=== PATIENT | male | born 1985 | race Caucasian/White ===

== ENCOUNTER 2021-08-26 03:57 | Emergency (ER) | payer BC, SELFPAY ==
--- NOTE | ~2021-08-26 | CT_ITS ---
EXAMINATION: CT abdomen pelvis wo con EXAM DATE: 08/26/2021 04:55 INDICATION: Lt flank and groin pain TECHNIQUE: Spiral CT of the abdomen and pelvis was performed without contrast. Axial, coronal and s agittal images of the abdomen and pelvis were reviewed. The dose-length product (DLP) for this exami nation was 1556.34 mGy-cm. The exposure was tailored according to patient size (auto mA exposure con trol), and iterative reconstruction (ASIR) was used as additional dose reduction technique. There is no prior study for comparison. FINDINGS: There is a punctate 2 mm calcification 1 mm from the left ureterovesicular junction which c ould be ureteral stone, mild left periureteral fat stranding. No caliectasis. No other genitourinary calcification suspected. The liver, spleen, adrenal glands and pancreas are unremarkable. Gallbladd er is unremarkable. No biliary obstruction. The prostate is unremarkable. The bladder is unremar kable. There is no retroperitoneal or pelvic lymphadenopathy. There are no findings to suggest appendicitis. The stomach and small bowel are unremarkable. There is expected amount of colonic stool. No free intraperitoneal gas. The heart is normal in size. T here are no pericardial or pleural effusions. The lung bases are unremarkable. The bones are unrema rkable. IMPRESSION: 1. Punctate, 2 mm left pelvic calcification probably 1 cm from the UVJ. Mild periureteral fat strand ing. Reviewed, dictated and finalized at location A. [employer] IMPRESSION: 1. Punctate, 2 mm left pelvic calcification probably 1 cm from the UVJ. Mild p eriureteral fat stranding.
[2021-08-26 04:04] VITALS: BP 145/88; PULSE 90; RESP 18; TEMP 36.7; O2SAT 99
[2021-08-26 04:12] VITALS: BP 149/89; PULSE 78; TEMP 37.1
[2021-08-26] MEDS: KETOROLAC 30 MG/ML VIAL (*BKC) IV PUSH (04:39)
[2021-08-26 05:00] LABS: Basophils Percent Auto 0.3 % (0.2-1.2); Eosinophils Absolute Auto 0.4 K/mm3 (0-0.3); Eosinophils Percent Auto 2.5 % (0-4.4); Hematocrit 44.7 % (42.0-52.0); Immature Granulocyte Absolute 0.06 K/mm3 (0.00-0.031); Immature Granulocyte Percent A 0.4 % (0-0.5); Lymphocytes Absolute Auto 1.68 K/mm3 (0.9-3.2); Lymphocytes Percent Auto 11.8 % (18.3-44.2); Mean Corpuscular HGB Conc 33.6 g/dl (32-36); Mean Corpuscular Hemoglobin 30.9 pg (26-34); Mean Corpuscular Volume 92.2 fl (80-100); Mean Platelet Volume 9.9 fl (7.4-10.4); Monocytes Absolute Auto 1.2 K/mm3 (0.1-0.6); Monocytes Percent Auto 8.4 % (2.6-8.5); Neutrophils Absolute Auto 10.9 K/mm3 (1.3-6.7); Neutrophils Percent Auto 76.6 % (45.5-73.1); Platelet Count Result 307 k/mm3 (150-375); Red Blood Count 4.85 M/mm3 (4.6-6.20); Red Cell Distribution Width 12.4 % (11.5-14.5); White Blood Count 14.2 K/mm3 (4.5-10.0)
[2021-08-26 05:26] LABS: Alanine Aminotransferase 25 U/L (4-50); Albumin Level 4.5 g/dL (3.5-5.1); Alkaline Phosphatase 114 U/L (38-126); Anion Gap 10 mmol/L (8-16); Aspartate Amino Transferase 25 U/L (17-59); Bilirubin,Total 0.7 mg/dL (0.2-1.3); Blood Urea Nitrogen 12 mg/dL (9-20); Calcium 9.2 mg/dL (8.4-10.2); Carbon Dioxide 26 mmol/L (22-30); Chloride 105 mmol/L (98-107); Estimated CRCL calculation 91 ml/min; Estimated Glomerular Filt Rate > 60; Glucose 111 mg/dL (65-110); Potassium 4.1 mmol/L (3.4-5.0); Sodium 141 mmol/L (137-145)
--- NOTE | 2021-08-26 05:37 | ED.ABDPAIN ---
HPI - Abdominal Pain General Chief Complaint: Abdominal Pain Stated Complaint: left flank pain Time Seen by Provider: 08/26/21 05:31 Source: patient Mode of arrival: ambulatory Limitations: no limitations History of Present Illness HPI narrative: Patient is a 36-year-old male complaining of left flank pain radiating to his left groin, 10 out of 10, sharp, started prior to arrival, woke me up from sleep . Patient denies any chest pain, shortness of breath, abdominal pain, nausea, vomiting, diarrhea, urinary symptoms, fever or chills. Patient denies any history of kidney stones. Related Data Allergies Allergy/AdvReac Type Severity Reaction Status Date / Time No Known Allergies Allergy Unverified 05/27/19 09:57 Review of Systems Review of Systems: All systems reviewed & are unremarkable except as noted in HPI and below Constitutional: Constitutional: Denies body ache(s), Denies chills, Denies excessive sweating, Denies fatigue, Denies fever(s), Denies headache(s), Denies lethargy, Denies malaise, Denies weakness and Denies weight loss Eyes: Eyes: Denies blurry vision, Denies change in vision and Denies loss of vision ENT: Denies dizziness, Denies ear discharge, Denies headache(s), Denies lip swelling, Denies epistaxis, Denies nasal congestion, Denies neck pain, Denies throat swelling and Denies tongue swelling Cardiovascular: Cardiovascular: Denies chest pain, Denies chest pain at rest, Denies chest pain with activity, Denies diaphoresis, Denies rapid heart rate, Denies edema, Denies irregular heart rhythm, Denies lightheadedness, Denies palpitations, Denies dyspnea and Denies dyspnea on exertion Respiratory: Respiratory: Denies chest congestion, Denies cough, Denies hemoptysis, Denies dyspnea and Denies dyspnea on exertion Gastrointestinal: Gastrointestinal: Denies abdominal pain, Denies melena, Denies hematochezia, Denies diarrhea, Denies nausea, Denies vomiting and Denies hematemesis Musculoskeletal: Musculoskeletal: Denies abnormal gait, Denies deformity, Denies joint swelling, Denies limited range of motion, Denies neck pain and Denies numbness Neurologic: Denies Abnormal speech present, Denies abnormal gait, Denies confusion, Denies dizziness, Denies headache(s), Denies focal weakness, Denies loss of vision, Denies numbness, Denies Other visual disturbances, Denies Sensory deficit (Neuro) and Denies weakness Psychiatric: Psychiatric: Denies confusion, Denies depression, Denies auditory hallucinations, Denies homicidal ideation and Denies suicidal ideation Endocrine: Endocrine: Denies cold intolerance, Denies excessive sweating, Denies fatigue, Denies heat intolerance and Denies palpitations Hematologic/Lymphatic: Hematologic/Lymphatic: Denies easy bleeding and Denies easy bruising Allergic/Immunologic: Allergic/Immunologic: Denies lip swelling, Denies throat swelling and Denies tongue swelling PMFSH Past Medical History Medical History ADHD, predominantly inattentive type Chronic nonallergic rhinitis COVID-19 Pharyngitis Family History Family History Grandparent Cerebrovascular accident Family history of cardiac disorder Family history of chronic obstructive pulmonary disease Family history of lung cancer Family history of primary malignant neoplasm of liver Family history of malignant neoplasm of brain Family history of emphysema Social History Social History Smoking status: Smoker, status unknown Alcohol intake: current Exam Const: General: cooperative, healthy appearing, comfortable, no acute distress, well developed, alert and awake; No confusion Orientation/consciousness: oriented to person, oriented to place, oriented to time, patient oriented x3 and No confusion Limitations: no limitations HENMT: Head: normal to inspection, norm
[2021-08-26] MEDS: SODIUM CHLORIDE 0.9% IV 1,000 ML 999 ML IV CONT (05:51)
[2021-08-26] MEDS: HYDROcodone/acetaminophen (*CRX) 7.5-325 MG TABLET 1 TAB PO (06:02)
[2021-08-26] MEDS: TAMSULOSIN HCL 0.4 MG CAPSULE PO (06:05)
[2021-08-26 07:29] LABS: Add Urine Microscopic? YES; Appearance Urine Clear (Clear); Bilirubin Urine Negative (Negative); Blood Urine 1+ (Negative); Color Urine Yellow (Yellow); Glucose Urine UA Negative (Negative); Ketones Urine Negative (Negative); Leukocyte Esterase Ur Negative LEU/UL (Negative); Mucus Urine Rare /lpf; Nitrate Urine Negative (Negative); Protein Urine Negative (Negative); RBC Urine 0-2 /hpf (0-2); Specific Grav Ur 1.014 (1.001-1.035); Urobilinogen Urine Negative mg/dL (<2.0); WBC Urine 0-3 /hpf
[2021-08-26 09:20] VITALS: BP 118/73; PULSE 77; RESP 16; O2SAT 100
== END 2021-08-26 09:20 | disposition home or self-care (01) ==
PROVIDERS: Emergency Provider Emergency Medicine; PCP Family Medicine
DX: N13.9 Obstructive and reflux uropathy, unspecified (principal); Z86.16 Personal history of COVID-19
CPT/HCPCS: 36415; 74176; 80053; 81001; 85025; 96361; 96374; 99284; A9270; J1885; J7030

== ENCOUNTER 2023-11-19 11:01 | Emergency (ER) | payer BC, SELFPAY ==
--- NOTE | ~2023-11-19 | XR_ITS ---
Left foot Technique: AP, oblique, and lateral views were obtained. Clinical History: Injury Findings: No acute fracture or dislocation is seen. Osseous alignment is anatomic. Joint spaces are p reserved without erosive or degenerative change. Soft tissues are unremarkable. Impression: Unremarkable left foot radiographs. Reviewed, dictated and finalized at location . Impression: Unremarkable left foot radiographs.
[2023-11-19 11:06] VITALS: BP 152/74; PULSE 110; RESP 18; TEMP 36.4; O2SAT 100
--- NOTE | 2023-11-19 13:11 | ED.LOWEXIN ---
HPI - Extremity Injury (Lower) General Chief Complaint: Extremity Injury, Lower Stated Complaint: left foot injury Time Seen by Provider: 11/19/23 11:08 History of Present Illness HPI Narrative: Patient got his left foot caught under forklift in door earlier today, he was wearing steel-toed boots. He is able to ambulate but does have some pain Related Data Home Medications Medication Instructions Recorded Confirmed cyanocobalamin (vitamin B-12) 2,000 mcg PO DAILY 02/20/23 08/26/23 1,000 mcg tablet Allergies Allergy/AdvReac Type Severity Reaction Status Date / Time No Known Allergies Allergy Verified 11/19/23 11:11 Review of Systems Review of Systems: All systems reviewed & are unremarkable except as noted in HPI and below PMFSH Past Medical History Medical History (Updated 11/19/23 @ 11:51 by Renuka Zaldivar MD) ADHD, predominantly inattentive type BMI 38.0-38.9,adult BMI greater than 40 Chronic nonallergic rhinitis COVID-19 Encounter for prostate cancer screening Encounter for wellness examination in adult Erectile dysfunction Total testosterone 327 with free testosterone 53.2 on 02/14/2022. Testosterone 483 with free testosterone 94.5 on 01/31/2023. Fatigue TSH normal at 2.01 on 02/14/2022. Morbid obesity with BMI of 40.0-44.9, adult Obesity (BMI 30-39.9) Pharyngitis Right knee pain Screening for diabetes mellitus Fasting glucose 86 with hemoglobin A1c 5.3 on 02/14/2022. Tobacco pipe smoker Ureteral calculus, left (08/26/21) 2 mm distal stone on CT in the ER 08/26/2021 Vitamin B12 deficiency (02/14/22) level low at 230 with goal greater than 400 on 02/14/2022. level low at 248 with goal greater than 400 with folic acid 17.4 and hemoglobin 14.9 on 01/31/2023. Family History Family History Grandparent Cerebrovascular accident Family history of cardiac disorder Family history of chronic obstructive pulmonary disease Family history of lung cancer Family history of primary malignant neoplasm of liver Family history of malignant neoplasm of brain Family history of emphysema Social History Social History Smoking status: Former smoker Alcohol intake: current Alcohol use details: Rarely Substance use: never Substance use type: does not use Lack of Transportation: No Lack of Food: Never True Current Housing: I Have Housing Concerned About Future Housing: No Difficulty Paying Gas/Electric Bills: No Difficulty Paying for Meds: No Currently Unemployed: No Education: High School Diploma/GED Difficulty w/ Childcare or Family Care: No Exam Narrative: EXAMINATION OF ORGAN SYSTEMS/BODY AREAS: Constitutional: Vital signs per nursing GENERAL:[No acute distress, non-toxic appearing.] HEAD: Normal with no signs of head trauma. EYES: EOMI, conjunctiva normal ENT: Hearing grossly intact LUNGS: Nonlabored breathing. HEART: [Regular rate and rhythm], normal DP pulses ABD: [Soft], [nontender to palpation] EXT: Normal range of motion; abrasion to top of left foot 1st metatarsal, some nail injury with subungual hematoma to 1st toe. Foot with soft compartments, slight tenderness to the medial left foot without significant tenderness SKIN: See above NEURO: [Alert and oriented x 3. No gross focal sensory or strength deficits.] PSYCH: Normal affect Course Vital Signs Vital signs: Vital Signs Temperature 97.6 F 11/19/23 11:06 Pulse Rate 110 H 11/19/23 11:06 Respiratory Rate 18 11/19/23 11:06 Blood Pressure 152/74 H 11/19/23 11:06 Pulse Oximetry 100 11/19/23 11:06 Temperature 97.6 F 11/19/23 11:06 Pulse Rate 110 H 11/19/23 11:06 Respiratory Rate 18 11/19/23 11:06 Blood Pressure 152/74 H 11/19/23 11:06 Pulse Oximetry 100 11/19/23 11:06 MDM - Extremity Injury (Lower) MDM Narrative Medical decision making narrative: Leslye
== END 2023-11-19 12:00 | disposition home or self-care (01) ==
PROVIDERS: Emergency Provider Emergency Medicine; PCP Family Medicine
DX: S99.922A Unspecified injury of left foot, initial encounter (principal); W23.0XXA Caught, crushed, jammed, or pinched between moving objects, initial encounter; E66.01 Morbid (severe) obesity due to excess calories; Z68.39 Body mass index [BMI] 39.0-39.9, adult; E53.8 Deficiency of other specified B group vitamins; Z87.891 Personal history of nicotine dependence
CPT/HCPCS: 73630; 99283